=== PATIENT | female | born 1980 | race Caucasian/White ===

== ENCOUNTER 2018-12-05 14:57 | Outpatient (REF) | payer BC, SELFPAY ==
--- NOTE | 2018-12-05 13:00 | PAPFT_PTH ---
PATIENT: Aline Montiel LOC: [facility] U#:[id number] AGE/SX: 38/F ROOM: RE12/05/[address]: ALE Ardon : 1980 BED: DIS: 12/05/2018 SPEC #: [id number] RECD: 12/05/18 18:18 STATUS: SHANNON REQ #: [id number] PENELOPE: 12/05/18 13:[address]: Kamilah Guzman DEPT: [facility] Cytology RECD BY: Bridget Escobar ENTERED: 12/05/18 18:18 SP TYPE: PAPFT CATHI DR: Marcelina Currie Tissues: 1 - CX/ENDOCX FOR PAP SMEARS Procedures: PAP THIN PREP/UVM Screening HPV DNA PROBE Comments: [id number]
== END 2018-12-05 15:17 ==
LOC: LBN 14:57
PROVIDERS: PCP Nurse Practitioner Family; Visit Provider Nurse Practitioner Family
DX: Z12.4 Encounter for screening for malignant neoplasm of cervix (principal); Z11.51 Encounter for screening for human papillomavirus (HPV)
CPT/HCPCS: 88142; 87624

== ENCOUNTER 2019-12-11 20:01 | Outpatient (REF) | payer BC, SELFPAY | END 2019-12-11 20:21 | LOC: NCHCN 20:01 | PROVIDERS: PCP Nurse Practitioner Family; Visit Provider Nurse Practitioner Family | DX: R30.0 Dysuria (principal) | CPT/HCPCS: 87086 ==

== ENCOUNTER 2020-05-05 13:42 | Outpatient (REF) | payer BC, SELFPAY ==
[2020-05-08 08:47] LABS: Patient Race White; SARS-CoV-2 RNA Undetected (Undetected); SARS-CoV-2 Specimen Source Nasal
== END 2020-05-05 14:02 ==
LOC: NCHCN 13:42
PROVIDERS: PCP Nurse Practitioner Family; Visit Provider Nurse Practitioner Family
DX: Z20.828 Contact with and (suspected) exposure to other viral communicable diseases (principal)
CPT/HCPCS: U0003

== ENCOUNTER 2020-08-16 21:11 | Outpatient (REF) | payer BC, SELFPAY | END 2020-08-16 21:31 | LOC: NCHCN 21:11 | PROVIDERS: PCP Nurse Practitioner Family; Visit Provider Family Medicine | DX: N39.0 Urinary tract infection, site not specified (principal) | CPT/HCPCS: 87086 ==

== ENCOUNTER 2022-02-14 17:52 | Outpatient (REF) | payer OTHER, SELFPAY ==
[2022-02-14 19:04] LABS: Abs Immature Grans 0.01 10^3/uL (0.0-0.06); Absolute Basophil Count 0.06 10^3/uL (0.0-0.2); Absolute Lymphocyte Count 3.14 10^3/uL (1.2-3.4); Absolute Monocyte Count 0.42 10^3/uL (0.1-0.8); Absolute Neutrophil Count 3.65 10^3/uL (1.2-6.7); Basophils % 0.8; Eosinophils % 1.4; HCT 43.8 % (36.0-46.0); HGB 15.1 g/dL (11.2-15.7); Immature Grans % 0.1; Lymphocytes % 42.5; MCH 30.9 pg (27.0-33.0); MCHC 34.5 % (32.0-36.0); MCV 90 fL (80-95); MPV 10.8 fL (8.0-11.0); Monocytes % 5.7; Neutrophils % 49.5; Platelet Count 417 10^3/uL (130-400); RBC 4.89 10^6/uL (3.93-5.22); RDW 11.9 % (11.7-14.6); RDW-SD 39.1 fL; WBC 7.38 10^3/uL (4.4-10.8)
[2022-02-14 19:28] LABS: ALT 31 U/L (14-59); AST 19 U/L (15-37); Albumin 4.1 g/dL (3.4-5.0); Alkaline Phosphatase 75 U/L (46-116); Anion Gap 10.1 mmol/L (3-11); BUN 12 mg/dL (7-18); Bilirubin, Total 0.3 mg/dL (0.2-1.0); CO2 26.9 mmol/L (21.0-32.0); CREATININE 0.8 mg/dL (0.55-1.02); Calcium 9.1 mg/dL (8.5-10.1); Chloride 100 mmol/L (98-107); Glucose 98 mg/dL (74-106); Sodium 137 mmol/L (136-145); Total Protein 7.3 g/dL (6.4-8.2)
[2022-02-14 19:55] LABS: Hemoglobin A1C 5.4 % (<5.7)
[2022-02-16 10:54] LABS: Lyme Ab w Rflx to Lyme Confirm Negative (Negative)
[2022-02-18 04:57] LABS: Anaplasma phagocytophilum Negative (Negative); B. miyamotoi PCR Negative (Negative); Babesia divergens/MO-1 Negative (Negative); Babesia duncani Negative (Negative); Babesia microti Negative (Negative); Ehrlichia chaffeensis Negative (Negative); Ehrlichia ewingii/canis Negative (Negative); Ehrlichia muris eauclairensis Negative (Negative)
== END 2022-02-14 17:53 | disposition home or self-care (01) ==
LOC: NCHCN 17:52
PROVIDERS: PCP Nurse Practitioner Family; Visit Provider Internal Medicine
DX: Z00.00 Encounter for general adult medical examination without abnormal findings (principal); R11.0 Nausea; R42 Dizziness and giddiness; R19.7 Diarrhea, unspecified; G44.209 Tension-type headache, unspecified, not intractable; Z13.1 Encounter for screening for diabetes mellitus
CPT/HCPCS: 80053; 87798; 83036; 85025; 86618

== ENCOUNTER 2022-03-10 11:02 | Outpatient (REF) | payer OTHER, SELFPAY ==
[2022-03-10 16:50] LABS: ESR 6 mm/hr (0-20)
[2022-03-10 18:07] LABS: Iron 180 ug/dL (50-170); Total Iron Binding Capacity 273 ug/dL (250-450); Transferrin Sat 66 % (15-50)
[2022-03-10 18:12] LABS: C-Reactive Protein 0.41 mg/dL (0.0-0.3); TSH (W/Ref FT4) 1.48 uIU/mL (0.36-3.74)
[2022-03-10 18:51] LABS: Ferritin 94 ng/mL (8-252); Vitamin B12 240 pg/mL (193-986)
[2022-03-13 15:44] LABS: ANA Interpretation Negative (Negative)
== END 2022-03-10 11:03 | disposition home or self-care (01) ==
LOC: NCHCN 11:02
PROVIDERS: PCP Nurse Practitioner Family; Visit Provider Nurse Practitioner Family
DX: M54.9 Dorsalgia, unspecified (principal); R07.89 Other chest pain; R03.0 Elevated blood-pressure reading, without diagnosis of hypertension; R53.83 Other fatigue; R53.81 Other malaise; R00.2 Palpitations; R19.7 Diarrhea, unspecified; G44.209 Tension-type headache, unspecified, not intractable; R42 Dizziness and giddiness
CPT/HCPCS: 85652; 82607; 82728; 83540; 83550; 84443; 86038; 86140

== ENCOUNTER 2022-03-17 21:15 | Outpatient (REF) | payer OTHER, SELFPAY ==
[2022-03-17 16:01] LABS: Ferritin 95 ng/mL (8-252)
[2022-03-17 17:07] LABS: Iron 134 ug/dL (50-170); Total Iron Binding Capacity 290 ug/dL (250-450); Transferrin Sat 46 % (15-50)
== END 2022-03-17 21:16 | disposition home or self-care (01) ==
LOC: NCHCN 21:15
PROVIDERS: PCP Nurse Practitioner Family; Visit Provider Nurse Practitioner Family
DX: R79.0 Abnormal level of blood mineral (principal)
CPT/HCPCS: 82728; 83540; 83550

== ENCOUNTER 2022-04-05 18:50 | Outpatient (REF) | payer OTHER, SELFPAY ==
[2022-04-07 10:38] LABS: Lyme Ab w Rflx to Lyme Confirm Negative (Negative)
== END 2022-04-05 18:51 | disposition home or self-care (01) ==
LOC: NCHCN 18:50
PROVIDERS: PCP Nurse Practitioner Family; Visit Provider Nurse Practitioner Family
DX: R53.83 Other fatigue (principal); R53.81 Other malaise
CPT/HCPCS: 87798; 86618

== ENCOUNTER 2022-04-14 12:39 | Outpatient (REF) | payer OTHER, SELFPAY ==
--- NOTE | 2022-04-14 10:00 | PAPFT_PTH ---
PATIENT: Aline Montiel LOC: [facility] U#:[id number] AGE/SX: 42/F ROOM: RE04/14/[address]: ALE Ardon : 1980 BED: DIS: 04/14/2022 SPEC #: [id number] RECD: 04/14/22 12:52 STATUS: SHANNON REQ #: [id number] PENELOPE: 04/14/22 10:[address]: Kamilah Guzman DEPT: [facility] Cytology RECD BY: Bridget Escobar ENTERED: 04/14/22 12:52 SP TYPE: PAPFT OTHR DR: Marcelina Currie Tissues: 1 - CX/ENDOCX FOR PAP SMEARS Procedures: PAP THIN PREP/UVM Screening HPV DNA PROBE Comments: [id number]
== END 2022-04-14 12:40 | disposition home or self-care (01) ==
LOC: LBN 12:39
PROVIDERS: PCP Nurse Practitioner Family; Visit Provider Nurse Practitioner Family
DX: Z12.4 Encounter for screening for malignant neoplasm of cervix (principal); Z11.51 Encounter for screening for human papillomavirus (HPV)
CPT/HCPCS: 88142; 87624

== ENCOUNTER → 2022-05-12 00:46 | Outpatient (CLI) | payer OTHER, SELFPAY ==
--- NOTE | 2022-05-12 12:00 | DI.MAMMO_ITS ---
Exam(s) MAMMO SCREENING EXAM: MAMMO SCREENING CLINICAL HISTORY: screening. TECHNIQUE: Bilateral full field digital CC and MLO mammographic images were obtained with 3D tomosyn thesis and utilizing computer aided detection (CAD). COMPARISON: None. Baseline mammogram on a 42-year-old patient FINDINGS: There are no significant findings in the right breast. In the left breast there is and infra laterally located slightly lobulated noncalcified nodule measur ing 7 x 4 millimeters, located approximately 9-10 cm from the nipple. Not typical location for benig n intramammary lymph node. Additional imaging recommended. There are no malignant-appearing microcalcification in this region or elsewhere in either breast There is no significant architectural distortion nor skin thickening-retraction. IMPRESSION: 1. No radiographic evidence of malignancy in the right breast. 2. There is a 7 x 4 millimeter nodular density in the left breast as described above. Spot compressi on view and ultrasound recommended. BI-RADS Category 0 - Assessment Incomplete: Need additional imaging evaluation Breast Density - Category B - Scattered areas of fibroglandular density Breast density Category C or D implies that the patient has dense breast tissue. Dense breast tissue can make it harder to find cancer on a mammogram. Dense breast tissue is also associated with an incr eased risk of breast cancer. This information about the result of the mammogram report was provided to the patient to raise their awareness. Use this report when you speak with the patient about their risks for breast cancer, which includes their family history. At that time, you may recommend additional screening tests (Ultrasoun d or MRI) as these tests may add significant information. A negative radiographic report should not delay biopsy if a dominant or clinically suspicious mass is present. Up to ten percent of cancers are not identified on mammography. A negative report may reinforce clinical impression. Adenosis and dense breasts may obscure an underlying neoplasm. False positive reports average 6 to 10%. Patient will receive a letter notifying them of these results.
== END ==
PROVIDERS: PCP Nurse Practitioner Family; Visit Provider Nurse Practitioner Family
DX: Z12.31 Encounter for screening mammogram for malignant neoplasm of breast (principal); R92.8 Other abnormal and inconclusive findings on diagnostic imaging of breast
CPT/HCPCS: 77063; 77067

== ENCOUNTER → 2022-05-17 01:50 | Outpatient (CLI) | payer OTHER, SELFPAY ==
--- NOTE | 2022-05-17 | DI.MAMMO_ITS ---
Exam(s) MG MAMMO SCREEN CALL BACK UNI US BREAST LT COMPLETE EXAM: MAMMO SCREEN CALL BACK UNI-LEFT AND COMPLETE LEFT BREAST ULTRASOUND CLINICAL HISTORY: NODULAR DENSITY LEFT BREAST. TECHNIQUE: Unilateral LEFT BREAST spot mammographic images obtained with 3D tomosynthesisand [employer] computer aided detection (CAD). . Complete LEFT breast Ultrasound was also performed, including all 4 quadrants, the retroareolar regio n, and the ipsilateral axilla. COMPARISON: Prior mammograms were reviewed. This additional imaging was performed due to findings described on the recent BASELINE screening mammogram of 05/12/2022. FINDINGS: DIAGNOSTIC LEFT BREAST MAMMOGRAM: Additional mammographic views performed todaydo not dissipate the nodule described. However, it appe ars to exhibit a notch, implying that it is probably a benign lymph node. COMPLETE LEFT BREAST ULTRASOUND: Ultrasound performed today reveals no evidence of solid or significant cystic lesions in all 4 quadra nts, further evidence that this nodules probably benign intramammary lymph node. Scanning of the left axilla is negative for adenopathy but reveals an 8 x 6 millimeter sebaceous cyst . IMPRESSION: 1. Benign-appearing left breast findings, as described above.. 2. Given that there are no prior mammograms recommend repeat left breast mammogram in 6 months to ens ure stability. Findings and recommendations were discussed by myself with the patient today. . BI-RADS Category 3 - 6 month - Probably Benign Finding: Recommend follow-up mammography in 6 months Breast Density - Category B - Scattered areas of fibroglandular density Breast density Category C or D implies that the patient has dense breast tissue. Dense breast tissue can make it harder to find cancer on a mammogram. Dense breast tissue is also associated with an incr eased risk of breast cancer. This information about the result of the mammogram report was provided to the patient to raise their awareness. Use this report when you speak with the patient about their risks for breast cancer, which includes their family history. At that time, you may recommend additional screening tests (Ultrasoun d or MRI) as these tests may add significant information. A negative radiographic report should not delay biopsy if a dominant or clinically suspicious mass is present. Up to ten percent of cancers are not identified on mammography. A negative report may reinforce clinical impression. Adenosis and dense breasts may obscure an underlying neoplasm. False positive reports average 6 to 10%. Patient will receive a letter notifying them of these results.
== END ==
PROVIDERS: PCP Nurse Practitioner Family; Visit Provider Nurse Practitioner Family
DX: Z12.31 Encounter for screening mammogram for malignant neoplasm of breast (principal); L72.3 Sebaceous cyst
CPT/HCPCS: 76642; 77063; 77067

== ENCOUNTER 2022-07-28 16:04 | Outpatient (REF) | payer OTHER, SELFPAY | END 2022-07-28 16:05 | disposition home or self-care (01) | LOC: LBN 16:04 | PROVIDERS: PCP Nurse Practitioner Family; Visit Provider Obstetrics & Gynecology | DX: R30.0 Dysuria (principal) | CPT/HCPCS: 87086 ==

== ENCOUNTER 2022-09-04 15:30 | Outpatient (REF) | payer OTHER, SELFPAY | END 2022-09-04 15:31 | disposition home or self-care (01) | LOC: LBN 15:30 | PROVIDERS: PCP Nurse Practitioner Family; Visit Provider Nurse Practitioner Women's Health | DX: R30.0 Dysuria (principal) | CPT/HCPCS: 87086 ==

== ENCOUNTER 2022-09-12 13:36 | Outpatient (REF) | payer OTHER, SELFPAY ==
[2022-09-12 21:22] LABS: Vitamin B12 392 pg/mL (193-986)
== END 2022-09-12 13:37 | disposition home or self-care (01) ==
LOC: NCHCN 13:36
PROVIDERS: PCP Nurse Practitioner Family; Visit Provider Nurse Practitioner Family
DX: E53.8 Deficiency of other specified B group vitamins (principal)
CPT/HCPCS: 82607

== ENCOUNTER 2022-11-24 00:02 | Outpatient (CLI) | payer OTHER, SELFPAY ==
--- NOTE | 2022-11-24 07:38 | DI.MAMMO_ITS ---
Exam(s) MG MAMMO DIAGNOSTIC UNI EXAM: MG MAMMO DIAGNOSTIC UNI CLINICAL HISTORY: 6 month f/u, F/U ABNL MAMMO, R92.8 TECHNIQUE: Cc and MLO mammogram images were performed according to the usual protocol including computer analysis with CAD system, tomosynthesis and C-view imaging. COMPARISON: MG MG MAMMO SCREENING from 05/12/2022 US US BREAST LT COMPLETE from 05/17/2022 MG MG MAMMO SCREEN CALL BACK UNI from 05/17/2022 FINDINGS: The left breast is composed of scattered fibroglandular densities, Breast Density category B. No suspicious masses or suspicious microcalcifications are seen. There is a stable small smoothly marginated ovoid nodule in the upper outer quadrant of the left breast which appears unchanged in siz e and appearance. It has central fatty hilum consistent with an intramammary lymph node. No skin thickening or abnormal axillary lymph nodes are seen. IMPRESSION: BI-RADS Cat 3, benign findings-Resume bilateral annual Screening Breast Density - Category B, scattered fibroglandular densities. A negative radiographic report should not delay biopsy if a dominant or clinically suspicious mass is present. Up to ten percent of cancers are not identified on mammography. A negative report may reinforce clinical impression. Adenosis and dense breasts may obscure an underlying neoplasm. False positive reports average 6 to 10%. Patient will receive a letter notifying them of these results.
== END 2022-11-24 00:22 ==
LOC: DI 00:02
PROVIDERS: PCP Nurse Practitioner Family; Visit Provider Nurse Practitioner Family
DX: R92.8 Other abnormal and inconclusive findings on diagnostic imaging of breast (principal); N63.21 Unspecified lump in the left breast, upper outer quadrant; N60.82 Other benign mammary dysplasias of left breast
CPT/HCPCS: 77061; 77065; G0279

== ENCOUNTER 2022-12-15 10:06 | Emergency (ER) | payer OTHER, SELFPAY ==
--- NOTE | 2022-12-15 10:00 | RT.EKG_ITS ---
APPROVED REPORT Exam: Resting ECG Reason for Exam: Chest pain Patient Location: E HR:78 bpm ECG Measurements Heart Rate 78 AXIS DC 150 P 42 QRSd 87 QRS 46 QT 382 T 49 QTc 435 Conclusion Sinus rhythm...normal P axis, V-rate 60- 99 Probable left atrial enlargement...P >50mS, <-0.10mV V1
[2022-12-15 10:11] VITALS: BP 144/93; PULSE 95; RESP 21; TEMP 36.4; O2SAT 99
[2022-12-15 10:32] VITALS: RESP 18
--- NOTE | 2022-12-15 10:33 | DI.CT_ITS ---
Exam(s) CT BRAIN NECK CTA EXAM: CT BRAIN NECK CTA CLINICAL HISTORY: left neck pain radiating to head with chest pain. TECHNIQUE: Imaging Protocol: Axial CT angiography was performed with multi-slice acquisition and mu lti-planar and/or 3D reconstructions. CONTRAST MATERIAL: Intravenous: Omnipaque 350 Contrast volume:85 mL COMPARISON: No exams were available for comparison FINDINGS: CTA Neck W: Aortic arch anatomy: The aortic arch anatomy is conventional and there is no significant stenosis at the origin of the great vessels off of the aortic arch. No intimal flap evident. Anterior circulation: Both common carotid arteries ascend with normal luminal diameters. At the level the carotid bulbs and proximal internal carotid arteries there is minimal plaque without hemodynamically significant stenosis evident. Both internal carotid arteries exhibit normal diameter in the upper neck. There also patent in the s kull base-carotid canals. Posterior circulation: Both vertebral arteries originate in conventional fashion off of the subclavian arteries and there is no obvious stenosis at the origin of the vertebral arteries. Both vertebral arteries exhibit normal luminal diameters within the foramen transversarium. No intraluminal thrombus and no evidence of dissection of the vertebral arteries. Both vertebral arteries contribute to the formation of the basilar artery at the skull base. CTA Brain W: Anterior circulation: Both internal carotid arteries are patent in the skull base-carotid canals as well as within the cave rnous sinuses. The supraclinoid aspects of the ICAs are patent. Both A1 segments are patent as are the anterior cer ebral arteries and there is no evidence of aneurysm at the level of the anterior communicating artery . Both middle cerebral arteries are patent with no evidence of significant stenosis nor intraluminal th rombus. There also no aneurysms of these vessels. Posterior circulation: The basilar artery ascends in the midline. Distally it gives off patent bilateral superior cerebella r arteries. Above this level the basilar artery terminates as patent bilateral posterior cerebral arteries. There is no evidence of aneurysm at the tip of the basilar artery nor elsewhere in the oailon-ci-Upan is. CT BRAIN: There is no evidence of intracranial hemorrhage, mass effect, or shift of midline structures. There are no extra-axial fluid collections. Ventricles are not enlarged or shifted. There are no ring enh ancing lesions in the brain and no abnormal meningeal enhancement. IMPRESSION: 1. Patent carotid arteries in the neck. No hemodynamically significant stenosis. 2. Patent vertebral arteries. 3. Patent intracranial arteries. 4. No ring enhancing lesions in the brain and no abnormal meningeal enhancement. RADIATION DOSE DELIVERED: 2,288.27mGy.cm Total DLP DATA REPOSITORY: All CT scans at this facility are submitted to the National Radiology Data Registry (NRDR) Dose Index Registry (DIR) with the [employer] (ACR). RADIATION OPTIMIZATION: All CT scans at this facility use at least one of these dose optimization te chniques: automated exposure control; mA and/or kV adjustment per patient size (includes targeted exa ms where dose is matched to clinical indication); or iterative reconstruction.
--- NOTE | 2022-12-15 10:33 | DI.CT_ITS ---
Exam(s) CT THORAX CTA EXAM: CT THORAX CTA CLINICAL HISTORY: chest pain and shortness of breath. TECHNIQUE: Imaging Protocol: CT angiography of the chest was performed using pulmonary embolus rajesh col. Multi planar reconstructions were performed. CONTRAST MATERIAL: Intravenous: Omnipaque 350 Contrast volume: 100 cc COMPARISON: CT CT BRAIN NECK CTA from 12/15/2022 FINDINGS: CHEST: THORACIC AORTA: Normal diameter. There is no dissection evident. No pericardial effusion. Heart si ze upper normal. No pericardial effusion. PULMONARY ARTERIES: No central pulmonary emboli. Opacification of more peripheral pulmonary arteries is not adequate for evaluation. LUNGS: There are no infiltrates nor evidence of pulmonary infarction.. There are no pleural effusions . MEDIASTINUM: There is no hilar nor mediastinal adenopathy. Visualized thyroid unremarkable. CARDIAC: Heart size is upper normal. There is no pericardial effusion.Caliber of the thoracic aorta is within normal limits. There is no significant shift of the interventricular septum. PARTIALLY VISUALIZED UPPERMOST ABDOMEN: No adrenal masses. Hepatic steatosis. OSSEOUS: No significant osseous lesions.No fractures. IMPRESSION: 1. No evidence of aortic dissection. No pericardial effusion. 2. No focal pulmonary findings nor pleural effusions 3. No central pulmonary emboli evident. Opacifications of vessels distal to the main pulmonary arter ies is less than optimal for accurate evaluation. RADIATION DOSE DELIVERED: 484.4mGy.cm Total DLP DATA REPOSITORY: All CT scans at this facility are submitted to the National Radiology Data Registry (NRDR) Dose Index Registry (DIR) with the [employer] (ACR). RADIATION OPTIMIZATION: All CT scans at this facility use at least one of these dose optimization te chniques: automated exposure control; mA and/or kV adjustment per patient size (includes targeted exa ms where dose is matched to clinical indication); or iterative reconstruction.
--- NOTE | 2022-12-15 10:35 | ED.GENADUL_ITS ---
Discharge Plan Disposition Patient Disposition: Home Condition: Stable Discharge Details Clinical Impression: Chest pain, Acute neck pain Primary Care Provider: Marcelina Currie ED Provider: Omar Alvarado Home Meds and New Rx's Prescriptions: New ondansetron 4 mg film 4 mg PO Q8H PRN (Reason: nausea and vomiting) Qty: 10 0RF Continued gabapentin 100 mg capsule 100 mg PO DAILY magnesium 250 mg tablet 250 mg PO DAILY cholecalciferol (vitamin D3) 25 mcg (1,000 unit) capsule 25 mcg PO DAILY meclizine 25 mg tablet 25 mg PO DAILY PRN omeprazole 20 mg capsule,delayed release(DR/EC) 20 mg PO DAILY multivitamin [Daily Multi-Vitamin] 1 EACH tablet 1 ea PO DAILY Discharge Instructions Instructions: Chest Pain (ED), Neck Pain (ED) Additional Instructions: Rest over the next few days. No exertional activities. Avoid any activities that worsen pain. Please contact your primary care physician to arrange follow-up. Call today. You should have an outpatient stress test next week. Return to the ER immediately for any worsening or new concerning symptoms. Referrals: Marcelina Currie [Primary Care Provider] - Discharge Data Discharge Date/Time-TO BE ENTERED AT DEPARTURE: 12/15/22 14:53 Medical Decision Making 1035 --42-year-old female presenting today with chest tightness and associated shortness of breath, also with pain in her left neck radiating to her head. Symptoms have been waxing and waning since yesterday and more persistent this morning. Patient does note recent elevated blood pressure of 150/90 over the past few checks. Today she is slightly hypertensive. Saturating well in no respiratory distress. Consider ACS. Patient has minimal risk factors although does have family history of 2 grandfathers who in their 40s with heart attack. EKG was reviewed and interpreted by me: Please see report, gentle upsloping of ST segment noted lead I, II and aVF. --Patient reassessed and feeling better after ondansetron and acetaminophen IV. 1340 --CTA of the head and neck interpreted by radiology: No acute process CTA of the thorax was interpreted by radiology: 1. No evidence of aortic dissection.? No pericardial effusion. 2. No focal pulmonary findings nor pleural effusions 3. No central pulmonary emboli evident.? Opacifications of vessels distal to the main pulmonary arteries is less than optimal for accurate evaluation. Labs reviewed and nondiagnostic. Normal troponin. I will give Pepcid IV. Plan for delta troponin. -- Labs reviewed: Delta troponin negative. Patient reassessed and is remained hemodynamically stable. Plan for discharge with close outpatient follow-up. Disposition decision was made weighing the risks and benefits of hospitalization versus outpatient treatment, the risk for further decompensation, and the patient's wishes. The patient was stable and requested discharge. Prior to discharge, my usual and customary return precautions were reviewed with the patient - this included follow-up instructions and reason to return to the emergency department if condition worsens, does not improve as expected, or other new concerns arise. HPI General Mode of arrival: ambulatory . Date/Time Provider Initiated Documentation: 12/15/22 10:07 . Limitations to Documentation: no limitations . Information obtained by: patient . HPI Narrative: 42-year-old female with history of peripheral neuropathy, migraine, here with chief complaint of chest pain. Patient notes she has had chest pain that started yesterday. Pain is described as a tightness and burning with associated shortness of breath. Pain localized to the left mid chest. Pain has been waxing and waning since onset. More persistent and worse this morning. She also notes pain in her left neck that radiates to her head. This pain is worse with movement of her neck. Patient does note 10-month history of intermittent nausea, dizziness and fatigue. Related Data Home Medications Medication Instructions Recorded Confirmed multivitamin (Daily Multi-Vitamin 1 ea PO DAILY 07/06/17 12/26/22 tablet) cholecalciferol (vitamin D3) 25 25 mcg PO DAILY 12/13/22 12/26/22 mcg (1,000 unit) capsule gabapentin 100 mg capsule 100 mg PO DAILY 12/13/22 12/26/22 magnesium 250 mg tablet 250 mg PO DAILY 12/13/22 12/26/22 meclizine 25 mg tablet 25 mg PO DAILY PRN 12/13/22 12/26/22 omeprazole 20 mg capsule,delayed 20 mg PO DAILY 12/13/22 12/26/22 release ondansetron 4 mg oral soluble film 4 mg PO Q8H PRN nausea and 12/15/22 12/26/22 vomiting #10 ea Previous Rx's Medication Instructions Recorded ondansetron 4 mg oral soluble film 4 mg PO Q8H PRN nausea and 12/15/22 vomiting #10 ea Allergies Allergy/AdvReac Type Severity Reaction Status Date / Time No Known Allergies Allergy Verified 12/26/22 12:53 General Stated Complaint: Chest Pain DANNY: 3 PFSH All Active Problems (Updated 12/15/22 @ 14:44 by Omar Alvarado MD) Chest pain (Acute) Acute neck pain (Acute) Dysuria (Acute) Idiopathic peripheral neuropathy (Acute 06/13/17) Migraine without aura and without status migrainosus, not intractable (Acute 06/13/17) Family History Father Essential hypertension Social History Smoking/Tobacco Use Status: Never Smoking risk assessment performed?: Yes Alcohol Intake: never Substance use type: does not use Do you feel safe at home: Yes Do you feel safe in your relationship?: Yes Female Reproductive History Menstrual control method: permanent sterilization History History 2 Para 2 Hx # Term Pregnancies Multiple births Hx # Pregnancies Ectopic pregnancies AB induced Hx Number of Living Children AB spontaneous Exam Const General: cooperative and no acute distress HENMT Head: normocephalic and atraumatic Mouth: moist mucous membranes Eyes Conjunctivae: normal conjunctivae Sclera: normal sclerae Neck Neck: trachea midline and supple Resp Auscultation: clear to auscultation bilaterally, no rales, no rhonchi and no wheezes Cardio Rate: regular rate and not tachycardic Rhythm: regular rhythm GI Palpation: soft, not firm, no guarding, no masses, not rigid and nontender Skin General skin exam: no rashes or lesions noted Neuro General: patient alert, patient awake, patient oriented x3 and tone normal Extrem General: no calf tenderness and no edema Psych Appearance: grossly normal Mental Status: mental status grossly normal Speech and Movement: speech and movement normal Course Vital Signs Vital signs: Vital Signs Temperature 36.4 C 12/15/22 10:11 Pulse 95 H 12/15/22 10:11 Respiratory Rate 12/15/22 10:11 Blood Pressure 144/93 H 12/15/22 10:11 Pulse Oximetry 99 12/15/22 10:11 Temperature 36.4 C 12/15/22 10:11 Temperature Source Oral 12/15/22 10:11 Pulse 95 H 12/15/22 10:11 Respiratory Rate 18 12/15/22 10:32 Respiratory Effort Normal, Non-Labored 12/15/22 10:32 Respiratory Depth Normal 12/15/22 10:32 Respiratory Pattern Normal 12/15/22 10:32 Blood Pressure 144/93 H 12/15/22 10:11 Blood Pressure Position Supine 12/15/22 10:11 Pulse Oximetry 99 12/15/22 10:11 Oxygen Delivery Method Room Air 12/15/22 10:11 Oxygen Flow Rate 0 12/15/22 10:11 Pain Level 4 12/15/22 10:11 Comment 4 chest pain; 7 headache 12/15/22 10:11
[2022-12-15] MEDS: Ondansetron 4 MG/2 ML VIAL IVP ×2 (10:42→13:28)
[2022-12-15] MEDS: ACETAMINOPHEN 1,000 MG/100 ML BTL 400 MG IVPB (10:42)
[2022-12-15 10:48] LABS: Abs Immature Grans 0.02 10^3/uL (0.0-0.06); Absolute Basophil Count 0.04 10^3/uL (0.0-0.2); Absolute Eosinophil Count 0.08 10^3/uL (0.0-0.7); Absolute Monocyte Count 0.53 10^3/uL (0.1-0.8); Absolute Neutrophil Count 4.42 10^3/uL (1.2-6.7); Basophils % 0.5; HCT 44.4 % (36.0-46.0); HGB 15.8 g/dL (11.2-15.7); Immature Grans % 0.3; Lymphocytes % 33.8; MCHC 35.6 % (32.0-36.0); MCV 87 fL (80-95); MPV 10.1 fL (8.0-11.0); Monocytes % 6.9; Neutrophils % 57.5; Platelet Count 359 10^3/uL (130-400); RDW 11.9 % (11.7-14.6); RDW-SD 38.1 fL; WBC 7.69 10^3/uL (4.4-10.8)
[2022-12-15 11:05] LABS: ALT 27 U/L (14-59); AST 13 U/L (15-37); Albumin 3.9 g/dL (3.4-5.0); Alkaline Phosphatase 83 U/L (46-116); Anion Gap 6.8 mmol/L (3-11); BUN 13 mg/dL (7-18); Bilirubin, Total 0.6 mg/dL (0.2-1.0); CO2 27.2 mmol/L (21.0-32.0); CREATININE 0.9 mg/dL (0.55-1.02); Calcium 9.1 mg/dL (8.5-10.1); Chloride 102 mmol/L (98-107); Estimated GFR 82.88 (mL/min/1.73m2); Glucose 95 mg/dL (74-106); Sodium 136 mmol/L (136-145); Total Protein 7.8 g/dL (6.4-8.2)
[2022-12-15 11:06] LABS: Troponin I < 50 ng/L (<or=60)
[2022-12-15] MEDS: Omnipaque 350 MG/ML 500 ML BTL-Imaging package IJ (12:23)
[2022-12-15] MEDS: Normal Saline - Diluent 50 ML VIAL IJ ×2 (12:24→12:25)
[2022-12-15] MEDS: Normal Saline Flush 10 ML SYR IVP (12:24)
--- NOTE | 2022-12-15 13:29 | NUR.NOTE ---
pt c/o nausea again. reports zofran helped initially. MD Alvarado made aware and ordered second dose of zofran. documented in MAR
[2022-12-15] MEDS: Famotidine 20 MG/2 ML VIAL IVP (13:51)
[2022-12-15 13:59] LABS: Troponin I < 50 ng/L (<or=60)
[2022-12-15 14:52] VITALS: BP 132/78; PULSE 85; RESP 18; O2SAT 98
== END 2022-12-15 14:53 | disposition home or self-care (01) ==
PROVIDERS: Emergency Provider Student in an Organized Health Care Education/Training Program; PCP Nurse Practitioner Family
DX: R07.89 Other chest pain (principal); M54.2 Cervicalgia; R06.02 Shortness of breath; I10 Essential (primary) hypertension
CPT/HCPCS: 36415; 70496; 70498; 71275; 80053; 93005; 96365; 96375; 99285; 83735; 84484; 85025; 93010; 99284; J0131; J2405

== ENCOUNTER 2022-12-19 16:16 | Outpatient (REF) | payer OTHER, SELFPAY ==
[2022-12-21 12:03] LABS: IgA 138 mg/dL (85-499); Interpretation (See Note); Tissue Transglutaminase IgA 1.8 U/mL (<4.0)
== END 2022-12-19 16:17 | disposition home or self-care (01) ==
LOC: NCHCN 16:16
PROVIDERS: PCP Nurse Practitioner Family; Visit Provider Internal Medicine
DX: R11.0 Nausea (principal); G44.89 Other headache syndrome
CPT/HCPCS: 82784; 83516

== ENCOUNTER 2023-01-12 03:04 | Outpatient (CLI) | payer OTHER, SELFPAY ==
[2023-01-12 13:44] LABS: Folate 15.6 ng/mL (8.6-20.0); TSH 1.91 uIU/mL (0.36-3.74); Vitamin B12 255 pg/mL (193-986)
[2023-01-12 14:00] LABS: FREE T4 1.14 ng/dL (0.76-1.46)
[2023-01-12 22:07] LABS: T3,Free 5.1 pg/mL (2.8-5.3)
[2023-01-15 10:27] LABS: Intrinsic Factor Blocking Ab Negative (Negative)
[2023-01-15 11:13] LABS: Homocysteine 7.1 umol/L (5.0-13.9)
== END 2023-01-12 03:05 | disposition home or self-care (01) ==
LOC: LBO 03:04
PROVIDERS: PCP Nurse Practitioner Family; Visit Provider Family Medicine
DX: R03.0 Elevated blood-pressure reading, without diagnosis of hypertension (principal); G44.89 Other headache syndrome; R11.0 Nausea; R07.89 Other chest pain
CPT/HCPCS: 36415; 80186; 83090; 82607; 82746; 84439; 84443; 84481; 86340

== ENCOUNTER → 2023-05-08 01:47 | Outpatient (CLI) | payer OTHER, SELFPAY ==
--- NOTE | 2023-05-08 | DI.US_ITS ---
APPROVED REPORT EXAM: Comprehensive 2D, Doppler, and color-flow Echocardiogram Patient Location: Out-Patient Piping Engineer: Arabella Renee RDCS (AE) Indications: Cardiomegaly, Fatigue, Tachycardia Other Information Study Quality: Adequate Conclusion Normal left ventricular wall thickness and chamber size. Ejection fraction is 55 to 60%. Wall motio n is normal Normal right ventricular size and systolic function Both atria are normal in size There is no structural or hemodynamically significant valvular disease Estimated right ventricular systolic pressure is 24 mmHg Wall motion Left Ventricle The left ventricle is normal size. The left ventricular systolic function is normal. The left ventric ular ejection fraction is within the normal range. There is normal left ventricular wall thickness. T here is normal LV segmental wall motion. There is no ventricular septal defect visualized. LVEF is 58 %. Right Ventricle The right ventricle is normal size. The right ventricular systolic function is normal. Atria The left atrium size is normal. The right atrium size is normal. The interatrial septum is intact wit h no evidence for an atrial septal defect. Aortic Valve The aortic valve is normal in structure. Aortic valve is trileaflet. There is no aortic valvular sten osis. No aortic regurgitation is present. Mitral Valve The mitral valve is normal in structure. No evidence of mitral valve stenosis. Trace mitral regurgita tion. Tricuspid Valve The tricuspid valve is normal in structure. There is no tricuspid valve stenosis. Trace tricuspid reg urgitation. The RVSP is 23.8 mmHg. Pulmonic Valve The pulmonary valve is normal in structure. There is no pulmonic valvular stenosis. Trace pulmonic re gurgitation. Great Vessels The aortic root is normal in size. The ascending aorta is normal The IVC collapses <50% with inspirat ion. Pericardium There is no pericardial effusion. 2D Dimensions IVSD d PLAX 0.92 cm F: 0.6-1.0 Ao Root d 3.27 cm F: 2.7 - 3.3 LVPW d PLAX 0.88 cm F: 0.6 - 1.0 Ao Asc Diam d 3.24 cm F: 2.3 - 3.1 LVID d PLAX 4.55 cm F: 3.8 - 5.2 LVDs 3.10 cm F: 2.2 - 3.5 LV EF Teichholz 60.1 % FS 31.93 % LV EDV (Teich) 94.8 mL LV ESV (Teich) 37.8 mL M-Mode TAPSE 2.21 cm (M/F) >1.7 Auto EF LV EDV A4C 139.4 mL LV EDV A2C 137.4 mL LV EDV BP 144.4 mL LV ESV A4C 61.2 mL LV ESV A2C 59.9 mL LV ESV BP 60.4 mL LVEF(%) A4C 56.1 % LVEF(%) A2C 56.4 % LVEF(%) BP 58.2 % LV SV A4C 78.2 ml LV SV A2C 77.5 ml LV SV BP 84.0 ml LV CO A4C 6.4 L/min LV CO A2C 6.1 L/min LV CO BP 6.3 L/min HR A4C 82.20 BPM HR A2C 78.74 BPM LV EDV Index (BP) LA Volume LA Length A4C 5.2 cm LA Length A2C 5.7 cm LA Area A4C s 21.43 cm2 LA Area A2C s 19.48 cm2 LA Vol A4C A-L 74.32 mL LA Vol A2C A-L 56.57 mL LA Vol Biplane A-L 67.6 mL LA Vol/BSA A4C A-L LA Vol/BSA A2C A-L LA Vol/BSA BP A-L 28.9 mL/m2 LA Vol A4C MOD 66.2 mL LA Vol A2C MOD 54.4 mL LA Vol BP MOD 62.1 mL RA Volume RA Area A4C 11.4 cm2 RA ESV A4C (A-L) 22.7mL RA Vol/BSA A4C A-L RA Length A4C 4.8 cm RA ESV A4C (MOD) 22.5mL LV Diastology MV E' medial 0.072 (>0.07 m/s) MV E Vmax 0.75 (0.4-1.3 m/s) MV E/E' MED 10.37 (<14) MV A Vmax 0.70 (0.4-1.3 m/s) MV E' lateral 0.116 (>0.1 m/s) E/A Ratio 1.1 MV E/E' LAT 6.46 (<14) MV E' Average 0.094 m/s MV E/E'(average) 7.96 Aortic Valve AoV Vmax 1.24 m/s LVOT Vmax 1.00 m/s AoV Peak Grad 6.2 mmHg LVOT Peak Grad 4.0 mmHg AoV Area (Vmax) 2.71 cm2 LVOT VTI 0.237 m AoV VTI 0.259 m LVOT Mean Grad 2.1 mmHg AoV Mean Ankit. 0.89 m/s LVOT SV 80.06 mL AoV Mean Grad 3.5 mmHg LVOT Diam s 2.05 cm AoV Area (VTI) 3.09 cm2 Velocity Ratio 0.81 Mitral Valve MV Vmax TIPS 0.76 m/s MV Mean Grad 1.4 (<2mmHg) MV VTI 0.187 m Pulmonary Valve PV Vmax 0.97 (0.5-1.5 m/s) RVOT Vmax 0.81 m/s PV Peak Grad 3.7 mmHg RVOT Peak Gr. 2.6 mmHg PV Mean Ankit 0.69 m/s RVOT VTI 0.185 m PV Mean Grad 2.2 mmHg RVOT Mean Gr. 1.5 mmHg Tricuspid Valve RA Pressure 8.00 mmHg TR Vmax 1.99 m/s TV S' 0.14 m/s TR Peak Grad 15.8 mmHg RVSP (TR) 23.8 mmHg
== END ==
PROVIDERS: PCP Nurse Practitioner Family; Visit Provider Family Medicine
DX: I51.7 Cardiomegaly (principal); R53.82 Chronic fatigue, unspecified; R00.0 Tachycardia, unspecified
CPT/HCPCS: 93306

== ENCOUNTER 2024-10-02 17:37 | Outpatient (CLI) | payer OTHER, SELFPAY ==
--- NOTE | 2024-10-02 17:45 | DI.RAD_ITS ---
Exam(s) XR FOOT RT COMPLETE EXAM: XR FOOT RT COMPLETE CLINICAL HISTORY: eval fx. TECHNIQUE: 2D digital imaging was performed of the right foot. Three images were obtained. AP, obl ique and lateral views were obtained. COMPARISON: No exams were available for comparison FINDINGS: BONES: No acute fracture is present. No bony destructive lesion is seen. JOINTS: No dislocation present. SOFT TISSUE: Normal. IMPRESSION: Unremarkable radiographs of the right foot. DATA REPOSITORY: RADIATION DOSE DELIVERED:
--- NOTE | 2024-10-02 18:07 | DI.VRAD_ITS ---
PROCEDURE INFORMATION: Exam: XR Right Foot Exam date and time: 10/02/2024 17:58 Age: 44 years old Clinical indication: Pain; Foot; Right; Eval FX TECHNIQUE: Imaging protocol: Radiologic exam of the right foot. Views: 3 or more views. COMPARISON: No relevant prior studies available. FINDINGS: Bones/joints: No acute fracture or subluxation. Soft tissues: Normal. IMPRESSION: No acute bony pathology. Dictated and Authenticated by: Sumaya Mejía MD. Orderin Sheron Gaspar MD
== END 2024-10-02 17:57 ==
LOC: DI 17:40
PROVIDERS: PCP Nurse Practitioner Family; Visit Provider Nurse Practitioner Family
DX: S93.504A Unspecified sprain of right lesser toe(s), initial encounter (principal); X58.XXXA Exposure to other specified factors, initial encounter
CPT/HCPCS: 73630

== ENCOUNTER 2025-03-04 22:01 | Outpatient (REF) | payer OTHER, SELFPAY ==
[2025-03-04 21:39] LABS: RBC Negative HPF (0-2); WBC 0-2 HPF (0-5)
== END 2025-03-04 22:02 | disposition home or self-care (01) ==
LOC: LBN 22:01
PROVIDERS: PCP Nurse Practitioner Family; Visit Provider Physician Assistant Medical
DX: B96.29 Other Escherichia coli [E. coli] as the cause of diseases classified elsewhere (principal); R30.0 Dysuria; R82.89 Other abnormal findings on cytological and histological examination of urine
CPT/HCPCS: 87077; 81015; 87086; 87186

== ENCOUNTER 2025-03-06 00:22 | Outpatient (CLI) | payer OTHER, SELFPAY ==
--- NOTE | 2025-03-06 12:25 | DI.RAD_ITS ---
Exam(s) XR CHEST 2V PA LATERAL EXAM: XR CHEST 2V PA LATERAL CLINICAL HISTORY: Cardiomegaly, I51.7. TECHNIQUE: 2D digital imaging was performed. COMPARISON: No exams were available for comparison FINDINGS: 2 views: Heart size is normal. The mediastinum is not widened. Lungs are clear. No infiltrates nor pleural effusions. IMPRESSION: No acute pulmonary findings. DATA REPOSITORY: RADIATION DOSE DELIVERED:
== END 2025-03-06 00:42 ==
LOC: DI 00:23
PROVIDERS: PCP Nurse Practitioner Family; Visit Provider Nurse Practitioner Family
DX: I51.7 Cardiomegaly (principal)
CPT/HCPCS: 71046

== ENCOUNTER 2025-03-25 11:55 | Outpatient (REF) | payer OTHER, SELFPAY ==
[2025-03-25 14:54] LABS: Hemoglobin A1C 5.1 % (<5.7)
[2025-03-25 15:01] LABS: Calculated LDL 126 mg/dL (<100); Cholesterol 214 mg/dL (<200); HDL Cholesterol 46 mg/dL (>or=50); Triglyceride 213 mg/dL (<150)
[2025-03-25 15:10] LABS: COMMENT (LAB VIEW ONLY) 163.62 mg/dL; Microalb ug/mg Crea 19.8 ug/mg Cr
== END 2025-03-25 11:56 | disposition home or self-care (01) ==
LOC: NCHCN 11:55
PROVIDERS: PCP Nurse Practitioner Family; Visit Provider Nurse Practitioner Family
DX: Z13.220 Encounter for screening for lipoid disorders (principal); Z13.1 Encounter for screening for diabetes mellitus; I10 Essential (primary) hypertension
CPT/HCPCS: 80061; 82043; 82570; 83036

== ENCOUNTER 2025-03-27 01:08 | Outpatient (CLI) | payer OTHER, SELFPAY ==
--- NOTE | 2025-03-27 | DI.MAMMO_ITS ---
Exam(s) MAMMO SCREENING EXAM: MAMMO SCREENING CLINICAL HISTORY: SCREENING, Z12.31. TECHNIQUE: Bilateral full field digital CC and MLO mammographic images were obtained with 3D tomosynthesis and utilizing computer aided detection (CAD). COMPARISON: Prior mammograms were reviewed. Prior ultrasound was also reviewed FINDINGS: There has been no significant change in the appearance and distribution of the fibroglandular tissue. No new right breast findings. In the left breast there is a slightly lobulated noncalcified 7 by 4 mm nodule located laterally, approximately 9-10 cm from the nipple, unchanged from the baseline mammogram of April 2022 and mammogram of October 2022. This nodule was not able to be identified on ultrasound examination of 05/17/2022, implying that it is most probably a benign tremor lymph node; and indeed it remains stable. There are no new spiculated masses nor new malignant appearing microcalcification groups in either breast. There is no significant architectural distortion nor skin thickening-retraction. IMPRESSION: Stable benign-appearing left breast finding. No radiographic evidence of malignancy. BI-RADS Category 2 - Benign Findings Breast Density - Category B - There are scattered areas of fibroglandular density. Breast density Category C or D implies that the patient has dense breast tissue. Dense breast tissue can make it harder to find cancer on a mammogram. Dense breast tissue is also associated with an increased risk of breast cancer. This information about the result of the mammogram report was provided to the patient to raise their awareness. Use this report when you speak with the patient about their risks for breast cancer, which includes their family history. At that time, you may recommend additional screening tests (Ultrasound or MRI) as these tests may add significant information. A negative radiographic report should not delay biopsy if a dominant or clinically suspicious mass is present. Up to ten percent of cancers are not identified on mammography. A negative report may reinforce clinical impression. Adenosis and dense breasts may obscure an underlying neoplasm. False positive reports average 6 to 10%. Patient will receive a letter notifying them of these results.
== END 2025-03-27 01:28 ==
LOC: DI 01:09
PROVIDERS: PCP Nurse Practitioner Family; Visit Provider Nurse Practitioner Family
DX: Z12.31 Encounter for screening mammogram for malignant neoplasm of breast (principal); R92.323 Mammographic fibroglandular density, bilateral breasts
CPT/HCPCS: 77063; 77067

== ENCOUNTER 2025-04-09 16:47 | Outpatient (REF) | payer OTHER, SELFPAY ==
[2025-04-09 20:52] LABS: Anion Gap 11.5 mmol/L (3-11); BUN 12 mg/dL (7-18); CO2 23.5 mmol/L (21.0-32.0); Calcium 9.2 mg/dL (8.5-10.1); Chloride 106 mmol/L (98-107); Estimated GFR 109.98 (mL/min/1.73m2); Glucose 95 mg/dL (74-106); Potassium 4.1 mmol/L (3.5-5.1); Sodium 141 mmol/L (136-145)
== END 2025-04-09 16:48 | disposition home or self-care (01) ==
LOC: NCHCN 16:47
PROVIDERS: PCP Nurse Practitioner Family; Visit Provider Nurse Practitioner Family
DX: I10 Essential (primary) hypertension (principal); R39.9 Unspecified symptoms and signs involving the genitourinary system
CPT/HCPCS: 80048; 87086

== ENCOUNTER 2025-05-01 18:32 | Outpatient (REF) | payer OTHER, SELFPAY ==
[2025-05-01 19:24] LABS: Glucose Negative (Negative)
== END 2025-05-01 18:33 | disposition home or self-care (01) ==
LOC: NCHCN 18:32
PROVIDERS: PCP Nurse Practitioner Family; Visit Provider Nurse Practitioner Family
DX: R30.0 Dysuria (principal); R82.89 Other abnormal findings on cytological and histological examination of urine
CPT/HCPCS: 81003

== ENCOUNTER 2025-08-13 16:24 | Outpatient (REF) | payer OTHER, SELFPAY | END 2025-08-13 16:25 | disposition home or self-care (01) | LOC: LBN 16:24 | PROVIDERS: PCP Nurse Practitioner Family; Visit Provider Physician Assistant Medical | DX: N39.0 Urinary tract infection, site not specified (principal) | CPT/HCPCS: 87086 ==